=== PATIENT | female | born 1940 | race Caucasian/White ===

== ENCOUNTER 2020-09-04 21:31 | Emergency (ER) | payer MEDICARE, OTHER ==
[2020-09-04 21:47] VITALS: O2SAT 97
[2020-09-04] MEDS ORDERED: XYLOCAINE 1% HCL 20 ML MDV IJ ONE (22:33)
[2020-09-04] MEDS ORDERED: XYLOCAINE 1% HCL 20 ML MDV ONE (22:34)
--- NOTE | 2020-09-04 22:51 | ERPHSYRPT ---
- History of Present Illness Time Seen by Provider: 09/04/20 21:46 Source: patient Patient Subjective Stated Complaint: pt c/o rt ingrown toe pain Triage Nursing Assessment: pt c/o ingrown toenail and having alot of pain. The nail has grown into the side of her toe and she is having difficulty dealing with the pain and cannot get underneath it anymore. 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 Pt denies any pain at this time. Physician History: Patient is a 79-year-old female presents to emergency department with complaints of worsening pain of the right great toe ingrown toenail. 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 Patient has been on her feet more than normal. Patient states that the ingrown toenail is worsening and pain. Patient states that she needs it out so that she can work. Pain described as an ache that is well localized. No radiation. Pain worse with palpation and ambulation. Pain improved with rest. No fever. No injury. Patient voices no other complaints or concerns at this time. Timing/Duration: day(s) (2 to 3 days) Severity: moderate Modifying Factors: Improves With: nothing Associated Symptoms: denies symptoms Allergies/Adverse Reactions: No Known Drug Allergies Allergy (Verified 09/04/20 22:08) Home Medications: Metoprolol Succinate 50 mg [Toprol Xl 50 MG] 100 mg PO HS 04/06/17 [History] Multivitamin [Daily Multivitamin] 1 each PO DAILY 04/06/17 [History] Hydralazine HCl 50 mg PO BID 09/04/20 [History] Losartan/Hydrochlorothiazide [Losartan-Hctz 100-25 mg Tab] 1 tab PO DAILY 09/04/20 [History] Hx Tetanus, Diphtheria Vaccination/Date Given: No Hx Influenza Vaccination/Date Given: Yes Hx Pneumococcal Vaccination/Date Given: No Immunizations Up to Date: No Travel Risk - International Travel Have you traveled outside of the country in past 3 weeks: No - Coronavirus Screening Are you exhibiting any of the following symptoms?: No Close contact with a COVID-19 positive Pt in past 14-21 Days: No - Vaccine Status Have you recieved a Covid-19 vaccination: Yes [employer]: [facility] - Vaccination Dates Date of 2cond Vaccination (if applicable): 06/05/20 - Review of Systems Constitutional: No Symptoms, No Fever, No Chills Eyes: No Symptoms Ears, Nose, & Throat: No Symptoms Respiratory: No Symptoms, No Cough, No Dyspnea Cardiac: No Symptoms, No Chest Pain, No Edema, No Syncope Abdominal/Gastrointestinal: No Symptoms, No Abdominal Pain, No Nausea, No Vomiting, No Diarrhea Genitourinary Symptoms: No Symptoms, No Dysuria Musculoskeletal: No Symptoms, No Back Pain, No Neck Pain Skin: No Symptoms, No Rash Neurological: No Symptoms, No Dizziness, No Focal Weakness, No Sensory Changes Psychological: No Symptoms Endocrine: No Symptoms Hematologic/Lymphatic: No Symptoms Immunological/Allergic: No Symptoms All Other Systems: Reviewed and Negative - Past Medical History Pertinent Past Medical History: Yes Neurological History: Other ENT History: No Pertinent History Cardiac History: Hypertension Respiratory History: Other Endocrine Medical History: No Pertinent History Musculoskeletal History: Osteoarthritis GI Medical History: Irritable Bowel History: No Pertinent History Psycho-Social History: Depression Female Reproductive Disorders: No Pertinent History Other Medical History: MRI for headaches, spinal tap, SOB, sinus drainage. 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 Past COVID +, minor heart blockage. - Past Surgical History Past Surgical History: Yes Neuro Surgical History: No Pertinent History Cardiac: No Pertinent History Respiratory: No Pertinent History Gastrointestinal: No Pertinent History Genitourinary: No Pertinent History Musculoskeletal: Orthopedic Surgery Female Surgical History: No Pertinent History Other Surgical History: trent. knee replacement, bunionectomy trent feet,left shoulder rotator cuff repair,several LANDON to back, trent. cataract IOL,skin cancers - Social History Smoking Status: Never smoker Exposure to second hand smoke: No Drug Use: none Patient Lives Alone: Yes - Female History Hx Now: No - Nursing Vital Signs Nursing Vital Signs: Initial Vital Signs Temperature 98.3 F 09/04/20 21:44 Pulse Rate 72 09/04/20 21:44 Respiratory Rate 20 09/04/20 21:44 Blood Pressure 205/76 09/04/20 21:44 O2 Sat by Pulse Oximetry 97 09/04/20 21:44 Pain Scale Pain Intensity 0 - Physical Exam General Appearance: no apparent distress, alert Eye Exam: PERRL/EOMI, eyes nml inspection Ears, Nose, Throat Exam: normal ENT inspection, TMs normal, pharynx normal, moist mucous membranes Neck Exam: normal inspection, non-tender, supple, full range of motion Respiratory Exam: normal breath sounds, lungs clear, airway intact, No respiratory distress Cardiovascular Exam: regular rate/rhythm, normal heart sounds, normal peripheral pulses Gastrointestinal/Abdomen Exam: soft, normal bowel sounds, No tenderness, No mass Back Exam: normal inspection, normal range of motion, No CVA tenderness, No vertebral tenderness Extremity Exam: normal inspection, normal range of motion, pelvis stable Neurologic Exam: alert, oriented x 3, cooperative, normal mood/affect, nml cerebellar function, nml station & gait, sensation nml, No motor deficits Skin Exam: normal color, warm, dry, No rash Lymphatic Exam: No adenopathy SpO2 Interpretation: normal SpO2: 97 O2 Delivery: Room Air - Course Nursing assessment & vital signs reviewed: Yes Ordered Tests: Medication Summary Discontinued Medications Generic Name Dose Route Start Last Admin Trade Name Tommieq PRN Reason Stop Dose Admin Lidocaine HCl 5 ml 09/04/20 22:33 09/04/20 22:36 Xylocaine 1% Hcl 20 Ml Mdv IJ 09/04/20 22:34 5 ml STAT ONE Administration Lidocaine HCl Confirm 09/04/20 22:34 Xylocaine 1% Hcl 20 Ml Mdv Administered 09/04/20 22:35 Dose 5 ml .[address] [facility] ONE - Progress Progress: improved Progress Note: Ingrown toenail was excised. The ingrown toenail is the toenail at the lateral aspect of the right great toe. 3 cc of 1% lidocaine was used to perform a local nerve block. After adequate anesthesia was obtained the involved toenail was everted and excised. No complications. Patient was neurovascular intact distally post procedure. Bacitracin and a dry dressing was applied. Patient is not a diabetic. No indication for antibiotics at this time. Will discharge home. Patient agrees to follow-up with a primary care doctor within 48 hours for reevaluation. Portions of this note were created with voice recognition technology. There may be grammatical, spelling, punctuation or sound alike errors 09/04/20 22:58 Counseled pt/family regarding: diagnosis, need for follow-up - Departure Departure Disposition: Home Clinical Impression: Ingrown right big toenail Condition: Stable Critical Care Time: No Referrals: SIMONE ARAUZ [Primary Care Provider] - Additional Instructions: Discharge/Care Plan KARLI MORALES was seen on 09/04/20 in the Emergency Room. The patient was counseled regarding Diagnosis,Lab results, Imaging studies, need for follow up and when to return to the Emergency Room. Prescriptions given: Discharge Note I have spoken with the patient and/or caregivers. I have explained the patient's condition, diagnosis and treatment plan based on the information available to me at this time. I have answered the patient's and/or caregiver's questions and addressed any concerns. The patient and/or caregivers have as good understanding of the patient's diagnosis, condition and treatment plan as can be expected at this point. The vital signs have been stable. The patient's condition is stable and appropriate for discharge from the emergency department. The patient will pursue further outpatient evaluation with the primary care physician or other designated or consulting physician as outlined in the discharge instructions. The patient and/or caregivers are agreeable to this plan of care and follow-up instructions have been explained in detail. The patient and/or caregivers have received these instruction. The patient/and or caregivers are aware that any significant change in condition or worsening of symptoms should prompt an immediate return to this or the closest emergency department or call 911.
[2020-09-04 23:07] VITALS: BP 181/73; PULSE 65
== END 2020-09-04 23:10 | disposition home or self-care (01) ==
LOC: ED 21:31
DX: L60.0 Ingrowing nail (principal); Z79.899 Other long term (current) drug therapy
CPT/HCPCS: 96372; 99283

== ENCOUNTER 2021-09-23 21:45 | Emergency (ER) | payer MEDICARE, OTHER ==
[2021-09-23] MEDS ORDERED: AFRIN NASAL SPRAY NS ONE ×2 (23:38→23:48)
--- NOTE | 2021-09-23 23:46 | ERPHSYRPT ---
- History of Present Illness Time Seen by Provider: 09/23/21 23:10 Source: patient Exam Limitations: no limitations Patient Subjective Stated Complaint: pt states she has been having nasal congestion increased today. c/o general body aches. Triage Nursing Assessment: pt alert and oreinted, answers questions approp. pt ambulatory with steady gait noted. respirations nonlabored with lungs cta. skin warm and dry. occasional hacking cough noted. Physician History: Patient is a 80-year-old female presents to our ED with complaints of nasal congestion, increased sinus pressure and tenderness. Patient states that her brother recently . He was a hoarder. Patient has been cleaning his home which she believes has mold. Since then patient has experienced nasal congestion. Patient states is difficult for her to sleep due to nasal congestion. Patient feels exhausted. No shortness of breath. No chest pain. No nausea or vomiting. No diarrhea. No rash. No fever. Symptoms are mild to moderate in intensity. Palpation to the maxillary sinuses reproduce pain. Patient voices no other complaints or concerns at this time. Timing/Duration: today Severity: moderate Modifying Factors: Improves With: nothing Associated Symptoms: denies symptoms Allergies/Adverse Reactions: No Known Drug Allergies Allergy (Verified 09/23/21 23:13) Home Medications: Metoprolol Succinate 50 mg [Toprol Xl 50 MG] 100 mg PO HS 04/06/17 [History] Multivitamin [Daily Multivitamin] 1 each PO DAILY 04/06/17 [History] Hydralazine HCl 50 mg PO BID 09/04/20 [History] Losartan/Hydrochlorothiazide [Losartan-Hctz 100-25 mg Tab] 1 tab PO DAILY 09/04/20 [History] Hx Tetanus, Diphtheria Vaccination/Date Given: No Hx Influenza Vaccination/Date Given: Yes Hx Pneumococcal Vaccination/Date Given: No Immunizations Up to Date: No Travel Risk - International Travel Have you traveled outside of the country in past 3 weeks: No - Coronavirus Screening Are you exhibiting any of the following symptoms?: Yes Symptoms: Cough: New Onset, Headaches/Body Aches/Fatigue - Vaccine Status Have you recieved a Covid-19 vaccination: Yes [employer]ice: [employer] - Vaccination Dates Date of 2cond Vaccination (if applicable): 06/05/20 - Review of Systems Constitutional: No Symptoms, No Fever, No Chills Eyes: No Symptoms Ears, Nose, & Throat: No Symptoms Respiratory: No Symptoms, No Cough, No Dyspnea Cardiac: No Symptoms, No Chest Pain, No Edema, No Syncope Abdominal/Gastrointestinal: No Symptoms, No Abdominal Pain, No Nausea, No Vomiting, No Diarrhea Genitourinary Symptoms: No Symptoms, No Dysuria Musculoskeletal: No Symptoms, No Back Pain, No Neck Pain Skin: No Symptoms, No Rash Neurological: No Symptoms, No Dizziness, No Focal Weakness, No Sensory Changes Psychological: No Symptoms Endocrine: No Symptoms Hematologic/Lymphatic: No Symptoms Immunological/Allergic: No Symptoms All Other Systems: Reviewed and Negative - Past Medical History Pertinent Past Medical History: Yes Neurological History: Other ENT History: No Pertinent History Cardiac History: Hypertension Respiratory History: Other Endocrine Medical History: No Pertinent History Musculoskeletal History: Osteoarthritis GI Medical History: Irritable Bowel History: No Pertinent History Psycho-Social History: Depression Female Reproductive Disorders: No Pertinent History Other Medical History: MRI for headaches, spinal tap, SOB, sinus drainage. 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 Past COVID +, minor heart blockage. - Past Surgical History Past Surgical History: Yes Neuro Surgical History: No Pertinent History Cardiac: No Pertinent History Respiratory: No Pertinent History Gastrointestinal: No Pertinent History Genitourinary: No Pertinent History Musculoskeletal: Orthopedic Surgery Female Surgical History: Hysterectomy Other Surgical History: trent. knee replacement, bunionectomy trent feet,left shoulder rotator cuff repair,several LANDON to back, trent. cataract IOL,skin cancers - Social History Smoking Status: Never smoker Exposure to second hand smoke: No Drug Use: none Patient Lives Alone: Yes - Nursing Vital Signs Nursing Vital Signs: Initial Vital Signs Temperature 98.1 F 09/23/21 23:00 Pulse Rate 84 09/23/21 23:00 Respiratory Rate 18 09/23/21 23:00 Blood Pressure 170/79 09/23/21 23:00 O2 Sat by Pulse Oximetry 94 L 09/23/21 23:00 Pain Scale Pain Intensity 5 - Physical Exam General Appearance: no apparent distress, alert Eye Exam: PERRL/EOMI, eyes nml inspection Ears, Nose, Throat Exam: normal ENT inspection, TMs normal, pharynx normal, moist mucous membranes Neck Exam: normal inspection, non-tender, supple, full range of motion Respiratory Exam: normal breath sounds, lungs clear, airway intact, No respiratory distress Cardiovascular Exam: regular rate/rhythm, normal heart sounds, normal peripheral pulses Gastrointestinal/Abdomen Exam: soft, normal bowel sounds, No tenderness, No mass Back Exam: normal inspection, normal range of motion, No CVA tenderness, No vertebral tenderness Extremity Exam: normal inspection, normal range of motion, pelvis stable Neurologic Exam: alert, oriented x 3, cooperative, normal mood/affect, nml cerebellar function, nml station & gait, sensation nml, No motor deficits Skin Exam: normal color, warm, dry, No rash Lymphatic Exam: No adenopathy SpO2 Interpretation: normal SpO2: 95 O2 Delivery: Room Air - Course Nursing assessment & vital signs reviewed: Yes Ordered Tests: Medication Summary Discontinued Medications Generic Name Dose Route Start Last Admin Trade Name Freq PRN Reason Stop Dose Admin Oxymetazoline HCl 15 ml 09/23/21 23:38 09/23/21 23:56 Oxymetazoline Nasal [place] 15ml Bottle NS 09/23/21 23:39 15 ml STAT ONE Administration Oxymetazoline HCl Confirm 09/23/21 23:48 Oxymetazoline Nasal [place] 15ml Bottle Administered 09/23/21 23:49 Dose 15 ml NS .[facility] Lab/Rad Data: Laboratory Results 09/23/21 Range/Units 23:35 Influenza Type A Ag NEGATIVE (NEGATIVE) Influenza Type B Ag NEGATIVE (NEGATIVE) RSV (PCR) NEGATIVE (Negative) SARS-CoV-2 (PCR) POSITIVE A (NEGATIVE) - Progress Progress: improved Progress Note: Patient reassessed. Patient's patent nasal passages feel much better after administration of Afrin. Patient states she is now breathing through her nose with minimal difficulty. Work-up reveals COVID-19 positivity. Patient's advised to isolate and follow all COVID precautions as discussed. Patient agrees to follow-up with primary care doctor within 48 hours for evaluation. She voices no other complaints or concerns at this time. Portions of this note were created with voice recognition technology. There may be grammatical, spelling, punctuation or sound alike errors 09/24/21 00:57 Counseled pt/family regarding: diagnosis, need for follow-up - Departure Departure Disposition: Home Clinical Impression: COVID-19, Nasal congestion Condition: Stable Critical Care Time: No Referrals: SIMONE ARAUZ MD [Primary Care Provider] - Follow up/PCP as directed Additional Instructions: Discharge/Care Plan KARLI MORALES was seen on 09/24/21 in the Emergency Room. The patient was counseled regarding Diagnosis,Lab results, Imaging studies, need for follow up and when to return to the Emergency Room. Prescriptions given: Discharge Note I have spoken with the patient and/or caregivers. I have explained the patient's condition, diagnosis and treatment plan based on the information available to me at this time. I have answered the patient's and/or caregiver's questions and addressed any concerns. The patient and/or caregivers have as good understanding of the patient's diagnosis, condition and treatment plan as can be expected at this point. The vital signs have been stable. The patient's condition is stable and appropriate for discharge from the emergency department. The patient will pursue further outpatient evaluation with the primary care physician or other designated or consulting physician as outlined in the discharge instructions. The patient and/or caregivers are agreeable to this plan of care and follow-up instructions have been explained in detail. The patient and/or caregivers have received these instruction. The patient/and or caregivers are aware that any significant change in condition or worsening of symptoms should prompt an immediate return to this or the closest emergency department or call 911.
[2021-09-24 00:18] LABS: INFLUENZA A NEGATIVE (NEGATIVE); INFLUENZA B NEGATIVE (NEGATIVE); RESPIRATORY SYNCTIAL VIRUS NEGATIVE (Negative)
[2021-09-24 00:29] LABS: SARS-CoV-2 Xpert Express POSITIVE (NEGATIVE)
[2021-09-24 00:55] VITALS: O2SAT 95
[2021-09-24 01:04] VITALS: BP 161/80; PULSE 84
== END 2021-09-24 01:17 | disposition home or self-care (01) ==
LOC: ED 21:45
DX: U07.1 COVID-19 (principal); R09.81 Nasal congestion; R51.9 Headache, unspecified; I10 Essential (primary) hypertension; Z86.16 Personal history of COVID-19; Z79.899 Other long term (current) drug therapy
CPT/HCPCS: 0241U; 99282; A9270-GY